=== PATIENT | male | born 1940 | race Caucasian/White ===

== ENCOUNTER 2022-06-15 16:09 | Outpatient (CLI) | payer MEDICARE, BC, SELFPAY ==
[2022-06-15 13:07] LABS: Albumin* 4.3 g/dL (3.3-5.0)
[2022-06-15 13:08] LABS: Chloride* 106 mmol/L (96-114); Potassium* 4.1 mmol/L (3.6-5.1); Sodium* 139 mmol/L (135-149)
[2022-06-15 13:10] LABS: Bilirubin Total* 0.5 mg/dL (0.1-1.5); Carbon Dioxide* 31 mmol/L (20-32); Cholesterol* 168 mg/dL (90-199); Estimated Glomerular Filt Rate 76 ml/min; Total Protein* 6.6 g/dL (6.0-8.3)
[2022-06-15 13:11] LABS: Alanine Aminotransferase* 34 U/L (4-50); Alkaline Phosphatase* 48 U/L (40-150); Aspartate Amino Transferase* 36 U/L (12-35); Blood Urea Nitrogen* 22 mg/dL (7-30); Calcium* 9.5 mg/dL (8.4-10.6); Glucose* 91 mg/dL (60-115); HDL Cholesterol* 70 mg/dL (>=40); LDL Cholesterol Calculated 90 mg/dL (<100); Triglycerides* 39 mg/dL (40-149)
[2022-06-15 13:50] LABS: PSA Diagnostic* < 0.06 ng/mL (0.10-4.00)
== END 2022-06-15 16:10 | disposition home or self-care (01) ==
PROVIDERS: PCP Internal Medicine; Visit Provider Internal Medicine
DX: I10 Essential (primary) hypertension (principal); C61 Malignant neoplasm of prostate; Z13.6 Encounter for screening for cardiovascular disorders
CPT/HCPCS: 80053; 80061; 84153

== ENCOUNTER 2023-06-21 07:55 | Outpatient (CLI) | payer MEDICARE, BC, SELFPAY | END 2023-06-21 07:56 | disposition home or self-care (01) | LOC: NFLDREF 06-22 | PROVIDERS: PCP Internal Medicine; Referring Provider Internal Medicine; Visit Provider Internal Medicine | DX: I10 Essential (primary) hypertension (principal); Z13.6 Encounter for screening for cardiovascular disorders | CPT/HCPCS: 80053; 80061 ==

== ENCOUNTER 2023-06-27 09:53 | Outpatient (CLI) | payer MEDICARE, BC, SELFPAY | END 2023-06-27 09:54 | disposition home or self-care (01) | LOC: NFLDREF 09:54 | PROVIDERS: PCP Internal Medicine; Visit Provider Internal Medicine | DX: C61 Malignant neoplasm of prostate (principal); I10 Essential (primary) hypertension; R74.01 Elevation of levels of liver transaminase levels | CPT/HCPCS: 84153 ==

== ENCOUNTER 2023-12-13 10:15 | Outpatient (RCR) | payer MEDICARE, BC, SELFPAY ==
--- NOTE | 2023-11-30 16:05 | PT.OPEX ---
PT [place] [facility] Eval PT [facility] Outpatient Eval Start: 11/30/23 15:28 Freq: Status: Active Protocol: Document 11/30/23 15:28 MARJAN (Rec: 11/30/23 15:58 MARJAN [id number]) E-signed By Savannah Wylie DPT Physical Therapy Outpatient Evaluation Insurance Information Recert Due Date 02/28/24 Insurance Name Medicare B,[employer] Medical Diagnosis L hip abd tendinitis Treating Diagnosis L hip/glut pain, L HS tightness/pain, core/hip/glut/ LE weakness, limping/antalgic gait, limited tolerance for extended standing/walking/ stairs Subjective Subjective Patient reports injury to L hamstring back in June. States he was doing some short distance jogging and felt a pull in the back of his knee. He had pain with pressure to the back of his thigh in sitting/driving. That has been feeling better but still tight and sore. Now the last couple of months he has also been having L hip/buttock pain . This is worse with activity , walking, stairs, kneeling, extended standing. Pain rated 0-5/10. He is using ibuprofen on occasion, but states rarely. Hasn't tried ice/heat. He also mentions some tightness, pulling into L calf muscle. He has increased pain with lying on his L side. Sleep has been ok on his R side. 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 He denies any recent falls. States he does not have to do any physical lifting with caring for his . Date of Last Physician Visit 11/23/23 Precautions Treatment Precautions/Contraindications cancer, resp issues Assessment Assessment/Impression Patient is an 83 year old male with L hip/glut pain, L HS tightness/pain, core/hip/glut/ LE weakness, limping/antalgic gait, limited tolerance for extended standing/walking/ stairs. Pain range 0-5/10. Patient with L hamstring tightness from a jogging injury back in June. He reports some ongoing L hamstring pain. Now also c/o L hip/buttock pain. He is tight, tender with palpation L lateral hip, L glut, and L ITB. L hamstring and L hip abd weakness noted with 4-/5 strength and pain with MMT. L knee/hip ROM are WFL, some general tightness, stiffness reported. Patient would benefit from skilled PT for pain/sx management, improved L LE flexibility, core/hip/glut /LE strengthening, improved gait, and establishment of HEP . Plan of Care Rehabilitation Potential Good Physical Therapy Goals 1. Decrease L hip/buttock/ hamstring pain to less than/ equal to 3/10 with daily activities and with the progression of PT activities over the next 4-6 weeks. 2. Improve L LE flexibility over the next 4-6 weeks for improved tolerance for daily activities including extended sitting, walking, and stairs without flare up of pain. 3. Improve hip/glut/LE/core strength over the next 10-12 weeks for return to extended standing/walking and stairs, normal gait, and providing care for his spouse without flare up of pain. 4. Patient will be I with HEP within 12 weeks for progression toward above goals, ongoing self management of pain/sx, ongoing self improvements in L hip/LE ROM/mobility/strength, and for return to daily activities/standing/walking/ stairs without flare up of pain. Coordination/Communication With Referral Source Treatment Plan/Direct Interventions Manual Therapy,Therapeutic Exercises Frequency/Duration 1x/week Patient Will Be Discharged From Therapy Completion of LTG(s),Skills Plateau,Independent w/HEP, Independently Progressing Evaluation Billing Untimed Code Treatment Minutes 24 Complexity Moderate Certification Information Initial Certification Date 11/30/23 Ending Certification Date 02/28/24 Provider Signature Shows Agreement With POC & Medical Necessity Physician Signature & Date Requested Please Sign/Date Here Physician Comment/Change : Physician NPI Number #
== END 2024-04-11 23:59 | disposition home or self-care (01) ==
PROVIDERS: PCP Internal Medicine; Visit Provider Orthopaedic Surgery Sports Medicine
DX: M76.892 Other specified enthesopathies of left lower limb, excluding foot (principal); Z51.89 Encounter for other specified aftercare
CPT/HCPCS: 97110; 97140; 97162

== ENCOUNTER 2024-07-04 08:00 | Outpatient (CLI) | payer MEDICARE, BC, SELFPAY | END 2024-07-04 08:01 | disposition home or self-care (01) | LOC: NFLDREF 12:59 | PROVIDERS: PCP Internal Medicine; Referring Provider Internal Medicine; Visit Provider Internal Medicine | DX: I10 Essential (primary) hypertension (principal); Z12.5 Encounter for screening for malignant neoplasm of prostate; Z13.220 Encounter for screening for lipoid disorders | CPT/HCPCS: 80053; 80061; G0103 ==

== ENCOUNTER 2025-07-21 10:15 | Outpatient (CLI) | payer MEDICARE, BC, SELFPAY | END 2025-07-21 10:16 | disposition home or self-care (01) | LOC: NFLDREF 07-22 10:06 | PROVIDERS: PCP Internal Medicine; Referring Provider Internal Medicine; Visit Provider Internal Medicine | DX: Z00.00 Encounter for general adult medical examination without abnormal findings (principal); I10 Essential (primary) hypertension; Z12.5 Encounter for screening for malignant neoplasm of prostate | CPT/HCPCS: 80053; 80061; G0103 ==